=== PATIENT | female | born 1980 | race Caucasian/White ===

== ENCOUNTER 2017-11-25 19:45 | Observation (INO) | payer BC | END 2017-11-25 20:58 | disposition home or self-care (01) | LOC: FLD 19:45 | PROVIDERS: ADMIT Obstetrics & Gynecology; ATTEND Obstetrics & Gynecology | DX: O99.89 Other specified diseases and conditions complicating pregnancy, childbirth and the puerperium (principal); Z3A.00 Weeks of gestation of pregnancy not specified | CPT/HCPCS: G0378 ==

== ENCOUNTER 2017-11-26 11:25 | Inpatient (IN) | payer BC ==
[2017-11-26] MEDS ORDERED: TERBUTALINE SULFATE 1 MG/ML VIAL IV PRN (11:55)
[2017-11-26] MEDS ORDERED: LR 1,000 ML IV PRN (11:55)
[2017-11-26] MEDS ORDERED: OXYTOCIN 20 UNIT in LR 1,000 ML IV PRN (11:55)
[2017-11-26] MEDS ORDERED: EPSOM SALT 454 GM TP PRN (11:55)
[2017-11-26] MEDS ORDERED: OLIVE OIL 118 ML BTL MISC PRN (11:55)
[2017-11-26] MEDS ORDERED: LIDOCAINE 1% 300 MG/30 ML SDV ONE (12:09)
[2017-11-26] MEDS ORDERED: MISOPROSTOL 200 MCG TAB ONE (12:10)
[2017-11-26] MEDS ORDERED: OLIVE OIL 118 ML BTL ONE (12:10)
[2017-11-26] MEDS ORDERED: TERBUTALINE SULFATE 1 MG/ML VIAL ONE (12:10)
[2017-11-26] MEDS ORDERED: OXYTOCIN 10 UNIT/ML VIAL ONE (12:10)
[2017-11-26] MEDS ORDERED: AMMONIA AROMATIC 1 EACH AMP IH ONE (12:10)
[2017-11-26 12:34] LABS: PLATELET COUNT 202 10^3/uL (150-400)
--- NOTE | 2017-11-26 13:08 | OBPROG ---
Labor Progress Note Assessment/Plan: Assessment: Plan: Subjective/Intrapartum Course: 11/26/17 13:08 patient uncomfortable. tried tub and nitrous oxide. requesting an epidural. anesthesia notified. Objective: 11/26/17 12:20 - SVE Dilation (cm): 7, 8 Effacement (%): 90 Station: 0 Membranes: SROM Amniotic Fluid Color: Clear - FHR Assessment Shahid FHR Pattern Variability: Moderate FHR Category: 1 - AP Antepartum Course: 11/26/17 13:06 unplanned but welcomed . uncertain of dates. dated by 11 weeks ultrasound at [facility]. CF carrier, FOB negative. Negative Innatal. negative AFP. two echogenic foci on right ventricle. declines level 2 ultrasound. uncomplicated . SROm at 10 am. active labor. Oxytocin Orders Assessment - Pre-Induction/Augmentation Assessment Gestational Age: 39 week(s) and 1 day(s) ICD10 Worksheet Patient Problems: Problems Problem Status Onset Normal labor Acute
--- NOTE | 2017-11-26 13:29 | OBPROG ---
Labor Progress Note Assessment/Plan: Assessment: Plan: Subjective/Intrapartum Course: 11/26/17 13:08 patient uncomfortable. tried tub and nitrous oxide. requesting an epidural. anesthesia notified. 11/26/17 13:28 patient complete. tried pushing but not able to due to pain and discomfort from pressure with pushing. requesting epidural. anesthesia just arrived. will place epidural. Objective: 11/26/17 12:20 Patient ABO/Rh A NEGATIVE 11/26/17 12:20 - SVE Dilation (cm): 10 Effacement (%): 100 Station: 0 Membranes: SROM Amniotic Fluid Color: Clear - AP Antepartum Course: 11/26/17 13:06 unplanned but welcomed . uncertain of dates. dated by 11 weeks ultrasound at [facility]. CF carrier, FOB negative. Negative Innatal. negative AFP. two echogenic foci on right ventricle. declines level 2 ultrasound. uncomplicated . SROm at 10 am. active labor. Oxytocin Orders Assessment - Pre-Induction/Augmentation Assessment Gestational Age: 39 week(s) and 1 day(s) ICD10 Worksheet Patient Problems: Problems Problem Status Onset Normal labor Acute
[2017-11-26] MEDS ORDERED: BUPIVACAINE 0.25% 30 ML SDV ONE (13:31)
[2017-11-26] MEDS ORDERED: PHENYLEPHRINE HCL 100 MCG/ML SYR ONE (13:31)
[2017-11-26] MEDS ORDERED: fentaNYL 2MCG/ML/BUP 0.1% RTU 100 ML BAG EP ONE (13:31)
--- NOTE | 2017-11-26 13:48 | GHP ---
[f rep st] PREOP HISTORY AND PHYSICAL DATE OF ADMISSION: 11/26/2017 ADMISSION DIAGNOSIS: Labor at 39 weeks' gestation. INDICATIONS: Patient is a 37-year-old, 2, para 1-0-0-1 who initiated care at [facility] at 11 weeks' gestation. The patient's was unplanned and she was not completely certain on dates so she had a dating ultrasound at her new OB visit which was size greater than dates by 18 days consistent with 11 week ultrasound. Her due date was changed to 2017. The patient's has been uncomplicated. She had negative genetic testing and ultrasound showed 2 echogenic foci in the right ventricle. She declined level 2 ultrasound. The patient began having contractions last night on 11/25 and was 1 cm dilated and was sent home. Contractions began increasing in frequency and intensity overnight. She had spontaneous rupture of membranes at 10 in the morning. She arrived to Labor and Delivery this afternoon and is found to be 5 cm dilated. An hour and a half later she was 8 cm dilated, 80% effaced, and at 0 station. The patient has been laboring in the tub and using nitrous oxide. PAST MEDICAL HISTORY: Significant for being a cystic fibrosis carrier. The father of the baby is negative. She has history of pyelonephritis x1. History of migraine headaches thought to be related to dairy. MEDICATIONS: vitamins and iron. SURGICAL HISTORY: Appendectomy. ALLERGIES: None. SOCIAL HISTORY: Patient is . She denies tobacco, alcohol, or drug use. FAMILY MEDICAL HISTORY: Noncontributory. MANAGER VEHICLE HISTORY: Menarche age 11. Periods every 28 days lasting 7 days. She is a 2, para 1-0-0-1. In 05/1989, the patient had a spontaneous vaginal delivery at 40 weeks' gestation 8 pound 4 ounce male . She had an 8-10 hour labor and delivered in [place]. She had an epidural for that. Father of the baby was different for that . Current has been uncomplicated. The patient has a remote history of abnormal Pap smears. Said she was managed with repeat Pap smear and all repeat Pap smears have been negative. She denies any history of any sexually transmitted diseases. PHYSICAL EXAMINATION: VITAL SIGNS: Stable. GENERAL APPEARANCE: Alert and oriented x3. PSYCH: Appropriate affect. NECK: Mobile, supple. HEART: Rate is regular. LUNGS: Clear to auscultation bilaterally. ABDOMEN: Gravid, nondistended, nontender. EXTREMITIES: Revealed no calf tenderness or edema. NEURO: Grossly intact. MUSCULOSKELETAL: Grossly intact. PELVIC: She is now 8 cm dilated, 80% effaced, and +1 station. heart tracing is category 1. She is having regular contractions and the is in the vertex presentation. LABS: Patient's labs: Blood type B negative, antibody screen negative. Rubella immune. GBS negative. HBsAg negative. HIV negative. Her 50 g glucose was 104. She had a negative screen and a negative alpha fetoprotein. She is a positive cystic fibrosis carrier. Father of the baby is negative. REVIEW OF SYSTEMS: A 10-point review of systems is negative with the exception of the above-mentioned pertinent positives. She states there is good movement. There is loss of fluid. There was a small amount of bloody show. She denies any headaches or changes in vision, nausea, vomiting, fevers, or chills. The patient will be managed expectantly. /[id number]/MODL MTDD
[2017-11-26] MEDS ORDERED: fentaNYL 2MCG/ML/BUP 0.1% RTU 100 ML EP SCH (14:00)
[2017-11-26] MEDS ORDERED: LR 500 ML IV SCH (14:00)
[2017-11-26] MEDS ORDERED: ONDANSETRON 4 MG/2 ML VIAL IVP PRN (14:00)
[2017-11-26] MEDS ORDERED: NALOXONE HCL 0.4 MG/ML INJ IVP PRN (14:00)
--- NOTE | 2017-11-26 14:00 | PDANEPAE ---
ANE History of Present Illness for KALYANI ANE Past Medical History - Pulmonary History Hx Sleep Apnea: No - Endocrine History Hx Diabetes: No ANE Review of Systems Review of systems is: negative Review of Systems: - Exercise capacity Exercise capacity: >=4 METS ANE Patient History - Allergies Allergies/Adverse Reactions: Penicillins Allergy (Verified 11/26/17 11:56) - Home Medications Home medications: home medication list seen and reviewed Home Medications: IRON,CARBONYL [IRON] 45 mg PO 11/26/17 [Last Taken 2 Days Ago ~11/24/17] Vit27&Calcium/Iron/FA [ Rx 1 Tablet (RX)] 1 each PO DAILY 11/26 [Last Taken 2 Days Ago ~11/24/17] - NPO status NPO Since - Liquids (Date): 11/26/17 NPO Since - Liquids (Time): 08:00 - Anes Hx Anes Hx: no prior problems - Smoking Hx Smoking Status: Never smoked - Family Anes Hx Family Anes Hx: none ANE Labs/Vital Signs - Labs Result Diagrams: 11/26/17 12:20 - Vital Signs Height: 175.26 cm Weight: 77.111 kg ANE Physical Exam - Airway Neck exam: FROM Mouth exam: normal dental/mouth exam - Pulmonary Pulmonary: no respiratory distress - Cardiovascular Cardiovascular: regular rate and rhythym - ASA Status ASA Status: II ANE Anesthesia Plan Anesthesia Plan: epidural Urgent/Emergent Case: Cindy rios completed preop but documented later for safe timely pt care
--- NOTE | 2017-11-26 14:08 | POSTANESTH ---
Post Anesthetic Evaluation Cardiovascular Status: Normal, Stable, Similar to Pre-Op Cond Respiratory Status: Normal, Stable, Similar to Pre-op Cond. Level of Consciousness/Mental Status: Can Participate in Eval, Alert and Oriented Pain Control: Adequate, Prn Tx Ordered Nausea/Vomiting Control: Adequate, Prn Tx Ordered Complications Possibly Related to Anesthesia: None Noted
[2017-11-26] MEDS ORDERED: CALCIUM CARBONATE 500 MG CHEWABLE TAB PO ONE (16:00)
[2017-11-26] MEDS ORDERED: CALCIUM CARBONATE 500 MG CHEWABLE TAB PO PRN (16:02)
[2017-11-26] MEDS ORDERED: LR 500 ML IV PRN (16:05)
--- NOTE | 2017-11-26 16:05 | OBPROG ---
Labor Progress Note Assessment/Plan: Assessment: Plan: Subjective/Intrapartum Course: 11/26/17 13:08 patient uncomfortable. tried tub and nitrous oxide. requesting an epidural. anesthesia notified. 11/26/17 13:28 patient complete. tried pushing but not able to due to pain and discomfort from pressure with pushing. requesting epidural. anesthesia just arrived. will place epidural. 11/26/17 16:04 patient comfortable with epidural. labored down. has begun pushing. contractions occasionally have spaced. discussed pitocin if needed. status reassuring. Objective: 11/26/17 12:20 Patient ABO/Rh A NEGATIVE 11/26/17 12:20 - SVE Dilation (cm): 10 Effacement (%): 100 Station: +2 Membranes: SROM Amniotic Fluid Color: Clear - FHR Assessment Shahid FHR Pattern Variability: Moderate FHR Category: 1 - AP Antepartum Course: 11/26/17 13:06 unplanned but welcomed . uncertain of dates. dated by 11 weeks ultrasound at [facility]. CF carrier, FOB negative. Negative Innatal. negative AFP. two echogenic foci on right ventricle. declines level 2 ultrasound. uncomplicated . SROm at 10 am. active labor. Oxytocin Orders Assessment - Pre-Induction/Augmentation Assessment Gestational Age: 39 week(s) and 1 day(s) ICD10 Worksheet Patient Problems: Problems Problem Status Onset Normal labor Acute
[2017-11-26] MEDS ORDERED: OXYTOCIN 30 UNIT in NS 500 ML IV SCH (16:15)
--- NOTE | 2017-11-26 17:44 | OBPROG ---
Labor Progress Note Assessment/Plan: Assessment: Plan: Subjective/Intrapartum Course: 11/26/17 13:08 patient uncomfortable. tried tub and nitrous oxide. requesting an epidural. anesthesia notified. 11/26/17 13:28 patient complete. tried pushing but not able to due to pain and discomfort from pressure with pushing. requesting epidural. anesthesia just arrived. will place epidural. 11/26/17 16:04 patient comfortable with epidural. labored down. has begun pushing. contractions occasionally have spaced. discussed pitocin if needed. status reassuring. 11/26/17 17:41 Patient has been pushing for 2 plus hours. have been trying multiple positions. patient has been holding back occasionally with pushing due to discomfort but is doing better now. discussed decels with pushing but overall status is reassuring. briefly discussed c section but patient does not want to talk about it now. will continue pushing and close observation. head is lower than when she started pushing. can consider vaccuum if needed if head is a bit lower. Objective: 11/26/17 12:20 Patient ABO/Rh A NEGATIVE 11/26/17 12:20 - SVE Dilation (cm): 10 Effacement (%): 100 Station: +2 Membranes: SROM Amniotic Fluid Color: Clear - Contraction Pattern Assessment Current Contraction Pattern: Regular - FHR Assessment Shahid FHR Pattern Variability: Moderate FHR Category: 2 - AP Antepartum Course: 11/26/17 13:06 unplanned but welcomed . uncertain of dates. dated by 11 weeks ultrasound at [facility]. CF carrier, FOB negative. Negative Innatal. negative AFP. two echogenic foci on right ventricle. declines level 2 ultrasound. uncomplicated . SROm at 10 am. active labor. Oxytocin Orders Assessment - Pre-Induction/Augmentation Assessment Gestational Age: 39 week(s) and 1 day(s) ICD10 Worksheet Patient Problems: Problems Problem Status Onset Normal labor Acute
[2017-11-26] MEDS: IBUPROFEN 600 MG TAB PO PRN (18:59)
--- NOTE | 2017-11-26 19:08 | OBDEL ---
Info Type: Vaginal Presentation at Delivery: Vertex (straight occiput posterior with nuchal cord x 1) L&D Analgesia/Anesthesia Type: Epidural, Nitrous GBS+: No Intrapartum Medications: Generic Name Dose Route Start Last Admin Trade Name Fremarjan PRN Reason Stop Dose Admin Ibuprofen 600 mg 11/26/17 11:55 11/26/17 18:59 Motrin PO 05/25/18 11:54 600 mg Q6HRS PRN Administration post , inflammation - Infant Care Provider Pulper Operator/BILL PEDDLER: Eva Mayer - Hospital Course Intrapartum: 11/26/17 13:08 patient uncomfortable. tried tub and nitrous oxide. requesting an epidural. anesthesia notified. 11/26/17 13:28 patient complete. tried pushing but not able to due to pain and discomfort from pressure with pushing. requesting epidural. anesthesia just arrived. will place epidural. 11/26/17 16:04 patient comfortable with epidural. labored down. has begun pushing. contractions occasionally have spaced. discussed pitocin if needed. status reassuring. 11/26/17 17:41 Patient has been pushing for 2 plus hours. have been trying multiple positions. patient has been holding back occasionally with pushing due to discomfort but is doing better now. discussed decels with pushing but overall status is reassuring. briefly discussed c section but patient does not want to talk about it now. will continue pushing and close observation. head is lower than when she started pushing. can consider vaccuum if needed if head is a bit lower. 11/26/17 19:05 developed decreased variability and tachycardia with pushing. discussed vacuum vs c section. risks of vacuum discussed with patient and her . agreed to proceed. Indications for Delivery: Spontaneous Labor Vaginal Delivery - Delivery Provider Delivery Physician/CNM: Montserrat Antonio - Labor and Delivery Onset of Contractions Date: 11/26/17 Onset of Contractions Time: 10:00 Onset of Contractions Type: Augmented Rupture of Membranes Date: 11/26/17 Rupture of Membranes Time: 10:00 Rupture of Membranes Type: Spontaneous Amniotic Fluid Color: Clear Dilation Complete Date: 11/26/17 Dilation Complete Time: 13:17 Placenta Delivery Date: 11/26/17 Placenta Delivery Time: 18:20 Total Hours of Labor: 8 Laceration: Other (Specify) (bilateral labial) Repair: 3-0 Vaginal Sponge Count Correct: Yes Vaginal Needle Count Correct: Yes Vaginal Sweep Performed: Yes EBL: 200 Delivery Events: Nuchal Cord - Medications Labor Augmentation/Induction Methods Used: Pitocin Labor Augmentation/Induction Indication: Contraction Strength Inadequate Assissted Delivery Assisted Delivery Type: Vacuum Station: +2, +3 Pop offs (Total): 2 Pulls (Total): 3 Assisted Delivery Comment: vacuum applied for tachycardia with decreased variability. consent obtained. pushed with good maternal effort. bladder drained with red rubber catheter. [place] Data SANDOR: 12/02/17 Gestational Age: 39 week(s) and 1 day(s) Shahid Delivery Date: 11/26/17 Delivery Time: 18:17 Sex of : Female Score (1 Min): 8 Score (5 Min): 9 ICD10 Worksheet Patient Problems: Problems Problem Status Onset Normal labor Acute
[2017-11-26] MEDS ORDERED: SIMETHICONE 80 MG TAB CHEW PO PRN (19:15)
[2017-11-26] MEDS ORDERED: HYDROCORTISONE 0.5% CREAM TP PRN (19:15)
[2017-11-26] MEDS ORDERED: ACETAMINOPHEN 325 MG TAB PO PRN (19:15)
[2017-11-26] MEDS: HYDROCODONE/APAP 5/325 TAB PO PRN (22:10)
[2017-11-27] MEDS: IBUPROFEN 600 MG TAB PO PRN ×4 (01:02→21:10)
[2017-11-27] MEDS: HYDROCODONE/APAP 5/325 TAB PO PRN ×2 (04:09→19:40)
--- NOTE | 2017-11-27 09:00 | OBPP ---
Progress Note Assessment/Plan: Assessment: [id number] s/p VAVD Rh Negative PPD#1 perineal laceration Plan: routine PP care pericare cont , consult PRN ambulate/hydrate plan to d/c home tomorrow 11/27/17 09:00 Subjective/ Course: 11/27/17 09:03 Pt doing well, she denies any pain. She reports moderate bleeding. She is ambulating and voiding without difficulty. She is . Objective: 11/26/17 12:20 Patient ABO/Rh A NEGATIVE 11/26/17 12:20 Temp Pulse Resp BP Pulse Ox 36 C 68 18 112/68 11/27/17 04:00 11/27/17 04:00 11/27/17 04:00 11/27/17 04:00 Uterine Position/Fundal Height: Umbilicus -1, Midline Uterine Tone: Firm Physical Exam - Physical Exam Neck: supple Abdomen: non-tender, soft Extremities: non-tender Skin: normal color, warm/dry Neuro/Psych: alert, normal mood/affect, oriented x 3
[2017-11-27] MEDS: DOCUSATE SODIUM 100 MG CAP PO PRN ×2 (09:18→19:40)
[2017-11-27 09:44] VITALS: RESP 16
[2017-11-27 19:09] VITALS: O2SAT 96
[2017-11-28] MEDS: IBUPROFEN 600 MG TAB PO PRN (06:11)
[2017-11-28] MEDS: HYDROCODONE/APAP 5/325 TAB PO PRN (09:15)
[2017-11-28] MEDS: DOCUSATE SODIUM 100 MG CAP PO PRN (09:15)
[2017-11-28 09:57] VITALS: BP 122/78; PULSE 79; TEMP 97.3
--- NOTE | 2017-11-28 10:50 | OBPP ---
Progress Note Assessment/Plan: Assessment: PPD 2 s/p VAVD Plan: Routine care, d/c home 11/28/17 10:47 Subjective/ Course: 11/27/17 09:03 Pt doing well, she denies any pain. She reports moderate bleeding. She is ambulating and voiding without difficulty. She is . 11/28/17 10:48 Pt doing ok - states BF going well. Bld is lessened and urinating fine. is using some [place] for perineal pain - but also has hemorrhoids and warned her of constipation with norco. ready for d/c Objective: 11/26/17 12:20 Patient ABO/Rh A NEGATIVE 11/26/17 12:20 Temp Pulse Resp BP Pulse Ox 36.3 C 79 16 122/78 H 96 11/28/17 08:30 11/28/17 08:30 11/28/17 08:30 11/28/17 08:30 11/27/17 19:08 Uterine Position/Fundal Height: Umbilicus -2 Uterine Tone: Firm Physical Exam - Physical Exam Abdomen: non-tender, soft Extremities: non-tender, pedal edema (minimal) Skin: normal color, warm/dry Neuro/Psych: alert, normal mood/affect
== END 2017-11-28 11:55 | disposition home or self-care (01) | DRG 775 ==
LOC: FLD 11:25 → FOB 11-27 04:40
PROVIDERS: ADMIT Obstetrics & Gynecology; ATTEND Obstetrics & Gynecology
DX: O76 Abnormality in fetal heart rate and rhythm complicating labor and delivery (principal); Z37.0 Single live birth; Z3A.39 39 weeks gestation of pregnancy; Z14.1 Cystic fibrosis carrier; O69.82X0 Labor and delivery complicated by other cord entanglement, without compression, not applicable or unspecified; O70.0 First degree perineal laceration during delivery
CPT/HCPCS: J2370; J3105